=== PATIENT | male | born 1945 | race Caucasian/White ===

== ENCOUNTER → 2018-11-04 | Outpatient (CLI) | payer MEDICARE, BC, OTHER ==
--- NOTE | 2018-11-04 17:02 | REP ---
HISTORY: Adrenal gland hypertrophy. COMPARISON: None. The imaged upper abdomen obtained during chest CT 12/09/2015 was reviewed. The lung bases are clear. Limited evaluation of the solid intraabdominal organs and gallbladder show no gross abnormalities. Limited evaluation of the pancreas, adrenal glands and kidneys show no gross abnormalities. There is no free fluid or free air in the abdomen. Limited evaluation of the bowel loops and their mesenteries show no abnormalities. There is no evidence of a mass within the abdomen, retroperitoneum, or involving the organ of Zuck[place]andl. There is an infrarenal abdominal aortic aneurysm difficult to evaluate without contrast, but having an AP measurement of 3 cm with a mural thrombus. Bone window technique throughout the exam shows chronic spinal degenerative changes. IMPRESSION: 1. Abdominal aortic aneurysm as described above. Contrast enhanced examination is recommended for further evaluation along with clinical correlation. 2. No evidence of a mass, adrenal or otherwise with findings as described above. Electronically Signed by Asael Verduzco DO 11/04/2018 05:58 P
== END ==
LOC: M RAD 14:27
PROVIDERS: ATTEND Internal Medicine Cardiovascular Disease
DX: I71.4 Abdominal aortic aneurysm, without rupture (principal); E27.5 Adrenomedullary hyperfunction; I10 Essential (primary) hypertension; R23.2 Flushing

== ENCOUNTER → 2021-01-16 | Outpatient (CLI) | payer MEDICARE, BC, OTHER ==
[~2021-01-16] MED LIST: ASPI81CH33 PO; BICA50TA9 PO; DILT180C78 PO; LIPI20TA PO; LISI40TA4 PO; NOXI1TAB PO; THERTAB52 PO; XARE15TA PO
--- NOTE | 2021-01-17 08:33 | RADONC.CN ---
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 Diagnosis/Treatment History Oncologic History 10/16/20 elevated PSA to 7.1 referred to [facility], [facility]- 12/07/20 MRI Prostate with midline TZ lesion PIRADS 3, and Left anterior TZ PIRADS 3 12/12/20 TRUS biopsy Alex 4+3=7 Left base, mid 4/14 cores. 3+4=7 11/30 cores, 3+3=6 11/30 cores. 6/14 cores+ overall Was offered surgery but declined, self-referred to [facility] [place] due to proximity to home Gland 22 cc IPSS 3 ABHILASH 1 Interval History Here with his . He has longstanding ED, not interested in medication for this. He has minimal LUTs, gets up once at night. No issues with stream or emptying. He has regular bowel movements daily. He has a good appetite and energy level. Past Medical History: CVD ED HLD HTN Past Surgical History: Left knee replacemetn 2002 Right shoulder replacement 2006 Family History: Father bladder cancer Social History: Never smoker Drinks 1-2 alcoholic beverages 3 days per week Allergies / Meds Home Meds Active Scripts Bicalutamide (Bicalutamide) 50 Mg Tablet, 1 TAB PO DAILY for 30 Days, #30 TAB Prov:GUSTAVO NEWMAN MD 01/16/21 Reported Medications Vitamin D3/Folic Acid (Noxifol-D3 2,500 Unit-1 mg Tab) 2,500 Unit Tablet, 1 TAB PO DAILY for 30 Days, #30 TAB 01/16/21 Aspirin (Aspirin) 81 Mg Tab.chew, 1 TAB PO DAILY for pain for 30 Days, #30 TAB 01/16/21 Multivitamin,Therapeutic (Thera-Tabs) 1 Each Tablet, 1 TAB PO DAILY for 30 Days, #30 TAB 01/16/21 Rivaroxaban (Xarelto) 15 Mg Tablet, 1 TAB PO BID for 21 Days, #42 TAB 01/16/21 Diltiazem Hcl (Diltiazem 24Hr ER) 180 Mg Cap.er.24h, 180 MG PO DAILY for 30 Days, #30 CAP 01/16/21 Lisinopril (Lisinopril) 40 Mg Tablet, 1 TAB PO DAILY for 30 Days, #30 TAB 01/16/21 Atorvastatin Calcium (Lipitor) 20 Mg Tablet, 1 TAB PO DAILY for 30 Days, #30 TAB 01/16/21 Review of Systems Constitutional: Denies: Chills, Fever, Night Sweats Eyes: Denies: Pain, Vision change HEENT: Denies: Head Aches, Dysphagia, Sore Throat Skin: Denies: Rash, Lesions, Bruising Pulmonary: Denies: Dyspnea, Cough, Pleuritic Chest Pain, Other Symptoms Cardiovascular: Denies: Chest Pain, Palpitations, Edema Gastrointestinal: Denies: Nausea, Vomiting, Abdominal Pain, Diarrhea Genitourinary: Denies: Dysuria, Frequency, Incontinence Hematologic: Denies: Bruising, Petecchia, Enlarged Lymph Nodes Musculoskeletal: Denies: Neck pain, Back pain Neurological: Denies: Weakness, Numbness, Incoordination Psych: Reports: Mood Normal; Denies: Memory Issues, Thoughts of Self Harm Vital Signs Ht 68" Wt 174 lbs BMI 26 T 98 P 76 RR 18 BP 187/85 O2 99% Pain 0 Fatigue 0 General Exam: Positive: Alert, Cooperative, No Acute Distress Eye Exam: Positive: PERRLA, EOMI ENT EXAM: Positive: Mucous membr. moist/pink, Pharynx Normal Chest Exam: Positive: Normal air movement; Negative: Rales, Rhonchi, Wheezing Heart Exam: Positive: Rate Normal, Regular Rhythm Abdomen Exam: Positive: Soft; Negative: Tenderness, Mass Male Exam: Positive: Normal Genital Exam, Normal Prostate, Normal Sphincter Tone Extremity Exam: Negative: Edema, Tenderness Skin Exam: Positive: Nl turgor and temperature; Negative: Rash Neuro Exam: Positive: Normal Gait, Normal Speech, Cranial Nerves 3-12 NL Psych Exam: Positive: Mental status NL, Mood NL, Memory Intact Diagnostic and Laboratory Diagnostic Review Radiologic images, relevant labs and pathology reports were personally reviewed and discussed with Mr. Smith. Assessment and Plan Impression Mr. 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 Stage Unfavorable intermediate risk prostate cancer [id number] [place] 4+3=7 (6/14 cores+) PSA 7.1 stage IIC Performance Status ECOG 0 Plan We had an extensive discussion with Mr. Smith regarding the diagnosis at hand and available therapeutic options. He is a healthy man. Main urologic complaint is ED, longstanding, not interested in meds for this. He has low IPSS. Given his age and unfavorable intermediate risk prostate cancer, I think he is an excellent candidate for EBRT with 6 months of ADT. We discussed the various options for treatment including combination therapy with EBRT and brachytherapy boost, versus moderately hypofractionated RT 70 Gy in 28 fractions, versus SBRT 36.25 Gy in 5 fractions. I explained that although reports of SBRT efficacy seem equivalent to other schedules, there are no [id number] comparisons, and the follow up is around 10 years on the most extensive series. This is in contrast to moderate hypofractionation which is supported by [id number] comparisons with longer schedules and more extensive follow up. After discussing these pros and cons, he has selected moderate hypofractionation, which I think is a great choice. We also discussed SpaceOAR and fiducial marker placement, the former to reduce the risk of acute and late GI toxicity, and the latter to improve daily localization of treatment. He agreed to proceed with these medically necessary and warranted procedures. For ADT, I recommend a 6 month course of lupron, preceded by casodex 50 mg daily for ~2 weeks. We will arrange his first 3 month injection in the coming week. We discussed the logistics of receiving radiation therapy in detail including the need for a 1-time planning session. This would occur 1-2 weeks after his SpaceOAR and fiducial marker placement. We reviewed the side effects of treatment including irritative voiding symptoms, fatigue, diarrhea and late rectal bleeding. We reviewed the short term ADT side effects of hot flashes, diminished libido, weight gain, and joint pain. After discussing the risks, benefits and alternatives to radiation therapy, Mr. Smith was amenable to pursuing radiotherapy. All questions were answered to the patient's satisfaction. We instructed the patient that if there were any questions,concerns or changes in clinical status in the interim to contact us. Recommendations 70 Gy in 28 fractions with VMAT SpaceOAR and fiducial marker placement Simulation 1-2 weeks after placement Lupron 6 months, will arrange injection in next 1-2 weeks Casodex 50 mg daily for 30 days Billing Statement Total time of [50] minutes was spent preparing for the visit [3], obtaining HPI [4], examining the patient [3], reviewing diagnostic tests [5], discussing management options [20], coordinating care [4], and writing this note [11]. GUSTAVO NEWMAN MD Jan 17, 2021 08:33
== END ==
LOC: M ONCR 14:18
PROVIDERS: ATTEND General Practice
DX: C61 Malignant neoplasm of prostate (principal)

== ENCOUNTER → 2021-01-30 | Outpatient (CLI) | payer MEDICARE, BC, OTHER ==
[~2021-01-30] MED LIST changes: +LEUPROLIDE 45MG SYRINGE KIT (LUPRON DEPOT) (FOR ONCOLOGY) IM ONE
--- NOTE | 2021-01-30 15:00 | RADENCPD ---
Date/Time of Encounter Date of Encounter: Jan 30, 2021 Time of Encounter: 14:41 Encounter Lui came in today for a brief follow up prior to his first lupron injection. He has been tolerating casodex without issue. We reviewed the plan to proceed with lupron today a 45 mg injection which will last for 6 months. We reviewed the side effects of lupron including injection site pain, fatigue, low libido, ED, weight gain and hot flashes. Informed consent was obtained from the patient. We will proceed with SpaceOAR and fiducial marker placement on 02/09/21 I have instructed him to hold his xarelto and ASA for 72 hours prior to the procedure. Our nurse will call him early next week to confirm he has done so and provide additional instructions. Plan: Proceed with GUSTAVO Huber MD Jan 30, 2021 15:00
== END ==
LOC: M ONCR 13:52
PROVIDERS: ATTEND General Practice
DX: C61 Malignant neoplasm of prostate (principal)
CPT/HCPCS: 96401; G0463; J9217

== ENCOUNTER → 2021-02-08 | Outpatient (CLI) | payer MEDICARE, BC, OTHER ==
[~2021-02-08] MED LIST changes: +CIPR-249 PO; -LEUPROLIDE 45MG SYRINGE KIT (LUPRON DEPOT) (FOR ONCOLOGY) IM ONE; +LIDOCAINE 2% MDV 20ML VIAL XX ONE; +LIDOCAINE VISCOUS 2% SOLN 15ML UDC XX ONE; +LORA1TAB4 PO
--- NOTE | 2021-02-08 11:18 | ROOPDOC ---
[facility] Report Of Operation Report of Operation [facility] Radiation Oncology SpaceOAR & fiducial marker procedure note Name: Torrey Smith ShaistaB: 45 Procedure diagnosis: C61.0 Prostate cancer Procedure date/time: 02/08/2021 1000 Physician: Gustavo Newman MD Implant(s): Fiducials (2 seeds per needle): Qfix [id number] Lot# [id number] Exp 04/16/2024 Qty 2 SpaceOAR: [id number] Lot# [id number] Exp 09/29/22 Qty 1 Description of procedure: Informed consent for placement of SpaceOAR and fiducial marker seeds (4) was obtained pre-procedure. A timeout was completed. The patient was placed in the high lithotomy position and a rectal exam with 2% viscous lidocaine was completed. The rectal vault was empty of stool. A chlorhexidine prep of the perineal skin was completed. The trans-rectal ultrasound probe was introduced, the prostate and the rectal bulb were well visualized. 2% lidocaine was infiltrated in the skin and soft tissues of the perineum via a 23 Ga spinal needle under ultrasound guidance. 10cc of local was used. Patient tolerated the block well. Next, fiducial marker seeds were placed via pre-loaded 18 Ga needles under ultrasound guidance. 2 seeds were placed in the left anterior base and apex, respectively. 2 seeds were placed at the right posterior base and apex, respectively. A hydro-dissection of the space between the prostate and rectum was conducted by locating Denonvilliers fascia and injecting 10 cc of isotonic saline through an 18 Ga needle into the potential space there to develop a plane for SpaceOAR implant. Once the hydro-dissection was complete, the needle was withdrawn to mid-gland and 2 cc of 2% lidocaine were injected into the space. The implant needle was then checked in the sagittal and transverse planes for optimal position and once verified, the SpaceOAR implant was placed. The implant was noted to have excellent positioning from base to near-apex. The needle was withdrawn and the ultrasound probe was removed from the rectum. Post procedure vital signs were WNL. The patient tolerated the procedure well without significant discomfort. EBL: <1cc Disposition: Simulation for radiation therapy will occur in the next 1-2 weeks The patient will complete antibiotic prophylaxis this evening GUSTAVO NEWMAN MD Feb 08, 2021 11:18
== END ==
LOC: M ONCR 08:49
PROVIDERS: ATTEND General Practice
DX: C61 Malignant neoplasm of prostate (principal)
CPT/HCPCS: 55874; 55876; A4648; C1889

== ENCOUNTER → 2021-03-16 | Outpatient (RCR) | payer MEDICARE, BC, OTHER ==
[~2021-03-16] MED LIST changes: +FLOM0.4C39 PO; -LIDOCAINE 2% MDV 20ML VIAL XX ONE; -LIDOCAINE VISCOUS 2% SOLN 15ML UDC XX ONE
== END ==
LOC: M ONCR 02-21 14:00
PROVIDERS: ATTEND General Practice
DX: C61 Malignant neoplasm of prostate (principal)

== ENCOUNTER 2021-04-11 10:17 | Outpatient (RCR) | payer MEDICARE, BC, OTHER | END 2021-04-16 | LOC: M ONCR 10:17 | PROVIDERS: ATTEND General Practice | DX: C61 Malignant neoplasm of prostate (principal) ==

== ENCOUNTER → 2021-07-04 | Outpatient (CLI) | payer MEDICARE, BC, OTHER ==
--- NOTE | 2021-07-04 10:39 | RADONC ---
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 He underwent EBRT 70 Gy in 28 fractions completed 04/11/21. He had concurrent 6 month Lupron injection on 01/30/21 and SpaceOAR placement on 02/08/21. Diagnosis/Treatment History Oncologic History 10/16/20 elevated PSA to 7.1 referred to [facility], [facility]- 12/07/20 MRI Prostate with midline TZ lesion PIRADS 3, and Left anterior TZ PIRADS 3 12/12/20 TRUS biopsy [place] 4+3=7 Left base, mid 4/14 cores. 3+4=7 /14 cores, 3+3=6 / cores. 6/14 cores+ overall Was offered surgery but declined, self-referred to [facility] due to proximity to home 01/30/21 Lupron 45 mg 02/08/21 SpaceOAR/fiducial placement 03/05/21-04/11/21 70 Gy in 28 fractions Recent data: 06/25/21 PSA <0.1 Testosterone 11 Interval History Lui reports he is feeling relatively well appetite and weight are stable. He has no pain. He notes mild increase in nocturia to 3x (was 2-3x prior to RT). No urinary steam issues, no incomplete emptying or urgency. He has no BRBPR, or diarrhea. He does note some decreased energy and fat redistribution to the middle abdomen. Current Therapy Surveillance Stage Unfavorable intermediate risk prostate cancer cT1c [place] 4+3=7 (6/14 cores+) PSA 7.1 Social History: Never smoker Drinks 1-2 alcoholic beverages 3 days per week Allergies / Meds Allergies: Coded Allergies: lorazepam (Unverified Allergy, Unknown, 01/30/21) Home Meds Active Scripts Tamsulosin HCl (Flomax) 0.4 Mg Capsule, 1 CAP PO QPM for 30 Days, #30 CAP 3 Refills Prov:GUSTAVO NEWMAN MD 03/23/21 Ciprofloxacin HCl (Cipro) 500 Mg Tablet, 1 TAB PO BID for 1 Day, #2 TAB Take 1 tab in the morning before procedure. Take 1 tab in the evening after procedure Prov:GUSTAVO NEWMAN MD 02/05/21 Lorazepam (Lorazepam) 1 Mg Tablet, 1 TAB PO DAILY for anxiety MDD 1 Tablet(s), #1 TAB Take 1 tab 1 hour prior to your procedure Prov:GUSTAVO NEWMAN MD 02/05/21 Bicalutamide (Bicalutamide) 50 Mg Tablet, 1 TAB PO DAILY for 30 Days, #30 TAB Prov:GUSTAVO NEWMAN MD 01/16/21 Reported Medications Vitamin D3/Folic Acid (Noxifol-D3 2,500 Unit-1 mg Tab) 2,500 Unit Tablet, 1 TAB PO DAILY for 30 Days, #30 TAB 01/16/21 Aspirin (Aspirin) 81 Mg Tab.chew, 1 TAB PO DAILY for pain for 30 Days, #30 TAB 01/16/21 Multivitamin,Therapeutic (Thera-Tabs) 1 Each Tablet, 1 TAB PO DAILY for 30 Days, #30 TAB 01/16/21 Rivaroxaban (Xarelto) 15 Mg Tablet, 1 TAB PO BID for 21 Days, #42 TAB 01/16/21 Diltiazem Hcl (Diltiazem 24Hr ER) 180 Mg Cap.er.24h, 180 MG PO DAILY for 30 Days, #30 CAP 01/16/21 Lisinopril (Lisinopril) 40 Mg Tablet, 1 TAB PO DAILY for 30 Days, #30 TAB 01/16/21 Atorvastatin Calcium (Lipitor) 20 Mg Tablet, 1 TAB PO DAILY for 30 Days, #30 TAB 01/16/21 Review of Systems Review of Systems Constitutional: Denies: Chills, Fever, Fatigue, Weight Loss Eyes: Denies: Pain HEENT: Denies: Head Aches Pulmonary: Denies: Dyspnea, Cough Cardiovascular: Denies: Chest Pain Gastrointestinal: Denies: Abdominal Pain, Hematochezia Genitourinary: Denies: Dysuria, Frequency, Incontinence Hematologic: Denies: Bruising Endocrine: Denies: Cold Intolerance Musculoskeletal: Denies: Neck pain, Back pain Neurological: Denies: Weakness, Numbness Psych: Reports: Mood Normal Physical Examination Vital Signs Wt 178 lbs T 96.4 P 78 RR 18 BP 148/74 O2 98% Pain 0 Fatigue 0 General Exam: Alert, Cooperative, No Acute Distress Eye Exam: PERRLA, EOMI ENT EXAM: Atraumatic Neck Exam: Supple Chest Exam: Clear to auscultation Heart Exam: Rate Normal Abdomen Exam: Soft; Negative: Tenderness Extremity Exam: Negative: Edema Skin Exam: Nl turgor and temperature Neuro Exam: Normal Gait, Normal Speech, Cranial Nerves 3-12 NL Psych Exam: Mental status NL Diagnostic and Laboratory Diagnostic Review Radiologic images, relevant labs and pathology reports were personally reviewed and discussed with Mr. Smith. Assessment and Plan Impression Assessment Mr. 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 He underwent EBRT 70 Gy in 28 fractions completed 04/11/21. He had concurrent 6 month Lupron injection on 01/30/21 and SpaceOAR placement on 02/08/21. PSA remains appropriately suppressed. Discussed that in the coming months testosterone will normalize and that PSA may rise slightly with it. He does not need additional ADT. Doing well from a urinary standpoint, does not want medication at this time. Was previously intolerant of flomax. Will see again in 6 months to split follow up with urology. Performance Status ECOG 0 Plan 6 months with PSA/testosterone Mr. Smith was encouraged to call with questions or concerns in the interim period. Billing Statement Total time of [25] minutes was spent preparing for the visit [1], obtaining HPI [7], examining the patient [2], reviewing diagnostic tests [2], discussing management options [6], coordinating care [1], and writing this note [6]. GUSTAVO NEWMAN MD Jul 04, 2021 10:39
== END ==
LOC: M ONCR 09:21
PROVIDERS: ATTEND General Practice
DX: C61 Malignant neoplasm of prostate (principal); Z79.82 Long term (current) use of aspirin; Z79.899 Other long term (current) drug therapy

== ENCOUNTER → 2021-12-07 | Outpatient (CLI) | payer MEDICARE, BC, OTHER | LOC: M PLAIMG 09:10 | PROVIDERS: ATTEND Nurse Practitioner Adult Health | DX: M25.532 Pain in left wrist (principal); M19.032 Primary osteoarthritis, left wrist; M19.042 Primary osteoarthritis, left hand ==

== ENCOUNTER → 2022-01-03 | Outpatient (CLI) | payer MEDICARE, BC, OTHER | LOC: M ONCR 09:18 | PROVIDERS: ATTEND General Practice | DX: C61 Malignant neoplasm of prostate (principal); Z79.82 Long term (current) use of aspirin; Z79.899 Other long term (current) drug therapy; Z92.3 Personal history of irradiation ==

== ENCOUNTER → 2022-08-22 | Outpatient (CLI) | payer MEDICARE, BC, OTHER | LOC: M PLARAD 15:49 | PROVIDERS: ATTEND Family Medicine | DX: M46.1 Sacroiliitis, not elsewhere classified (principal); M51.16 Intervertebral disc disorders with radiculopathy, lumbar region; M47.816 Spondylosis without myelopathy or radiculopathy, lumbar region; M25.78 Osteophyte, vertebrae; M48.061 Spinal stenosis, lumbar region without neurogenic claudication ==

== ENCOUNTER → 2022-09-02 | Outpatient (CLI) | payer MEDICARE, BC, OTHER | LOC: M ONCR 10:22 | PROVIDERS: ATTEND General Practice | DX: C61 Malignant neoplasm of prostate (principal); Z79.01 Long term (current) use of anticoagulants; Z79.82 Long term (current) use of aspirin; Z79.899 Other long term (current) drug therapy; Z88.8 Allergy status to other drugs, medicaments and biological substances; Z92.21 Personal history of antineoplastic chemotherapy; Z92.3 Personal history of irradiation ==

== ENCOUNTER → 2022-09-02 | Outpatient (CLI) | payer MEDICARE, BC, OTHER | LOC: M PLAIMG 15:14 | PROVIDERS: ATTEND Family Medicine | DX: E87.1 Hypo-osmolality and hyponatremia (principal); I51.7 Cardiomegaly; I77.819 Aortic ectasia, unspecified site; Z96.611 Presence of right artificial shoulder joint ==

== ENCOUNTER → 2022-09-03 | Outpatient (REF) | payer MEDICARE, BC, OTHER | LOC: M LAB REF 16:56 | PROVIDERS: ATTEND Internal Medicine Nephrology | DX: E87.1 Hypo-osmolality and hyponatremia (principal); I50.32 Chronic diastolic (congestive) heart failure ==

== ENCOUNTER → 2023-08-29 | Outpatient (CLI) | payer MEDICARE, BC, OTHER ==
[~2023-08-29] MED LIST changes: +LORA1TAB23 PO; -LORA1TAB4 PO
== END ==
LOC: M ONCR 10:00
PROVIDERS: ATTEND General Practice
DX: C61 Malignant neoplasm of prostate (principal); R35.1 Nocturia; Z71.2 Person consulting for explanation of examination or test findings; Z79.01 Long term (current) use of anticoagulants; Z79.82 Long term (current) use of aspirin; Z79.899 Other long term (current) drug therapy; Z88.8 Allergy status to other drugs, medicaments and biological substances; Z92.3 Personal history of irradiation

== ENCOUNTER → 2024-01-21 | Outpatient (CLI) | payer MEDICARE, BC, OTHER ==
[2024-01-21 17:25] LABS: BASO % 0.1 % (0.0-1.0); HEMATOCRIT 40.2 % (42.0-52.0); HEMOGLOBIN 13.9 g/dl (13.5-17.5); LYMPH # 0.6 10^3/uL (1.5-5.0); LYMPH % 6.5 % (24.0-44.0); MEAN CORPUSCULAR HEMOGLOBIN 31.9 pg (27.0-33.0); MEAN CORPUSCULAR HGB CONC 34.6 g/dl (32.0-36.5); MEAN CORPUSCULAR VOLUME 92.2 fl (80.0-96.0); MONO # 0.2 10^3/uL (0.0-0.8); MONO % 1.6 % (2.0-8.0); NEUTROPHILS # 8.5 10^3/uL (1.5-8.5); NEUTROPHILS % 91.3 % (36.0-66.0); PLATELET COUNT, AUTOMATED 291 10^3/uL (150-450); RED BLOOD COUNT 4.36 10^6/uL (4.30-6.10); WHITE BLOOD COUNT 9.3 10^3/uL (4.0-10.0)
[2024-01-21 17:56] LABS: ALBUMIN 4.5 G/DL (3.2-5.2); ALKALINE PHOSPHATASE 83 U/L (46-116); ALT/SGPT 27 U/L (7.0-40); AST/SGOT 14 U/L (<34); BILIRUBIN,TOTAL 0.5 MG/DL (0.3-1.2); BLOOD UREA NITROGEN 13 MG/DL (9-23); CALCIUM LEVEL 8.9 MG/DL (8.3-10.6); CARBON DIOXIDE LEVEL 27 MMOL/L (20-31); CHLORIDE LEVEL 96 MMOL/L (98-107); FOLATE > 24.00 NG/ML (>5.4); FREE THYROXINE INDEX 2.9 % (1.4-3.8); GLOMERULAR FILTRATION RATE > 60.0 (>42); GLUCOSE, FASTING 148 MG/DL (74-106); POTASSIUM SERUM 4.9 MMOL/L (3.5-5.1); SODIUM LEVEL 127 MMOL/L (136-145); THYROID STIMULATING HORMONE 0.593 uIU/ML (0.55-4.78); THYROXINE (T4) 6.1 UG/DL (4.5-10.9); TOTAL PROTEIN 7.4 G/DL (5.7-8.2); VITAMIN B12 LEVEL 736 PG/ML (211-911)
== END ==
LOC: M PLALAB 14:40
PROVIDERS: ATTEND Psychiatry & Neurology Neurology
DX: R41.3 Other amnesia (principal); E07.9 Disorder of thyroid, unspecified; E53.8 Deficiency of other specified B group vitamins

== ENCOUNTER → 2024-08-31 | Outpatient (CLI) | payer MEDICARE, OTHER ==
[~2024-08-31] MED LIST changes: +BICA50TA4 PO; -BICA50TA9 PO
== END ==
LOC: M ONCR 10:19
PROVIDERS: ATTEND General Practice
DX: C61 Malignant neoplasm of prostate (principal); Z92.3 Personal history of irradiation; Z92.29 Personal history of other drug therapy; Z88.8 Allergy status to other drugs, medicaments and biological substances; Z79.82 Long term (current) use of aspirin; Z79.899 Other long term (current) drug therapy

== ENCOUNTER → 2024-12-20 | Outpatient (CLI) | payer MEDICARE, BC | LOC: M CARPUL 09:13 | PROVIDERS: ATTEND Internal Medicine Cardiovascular Disease | DX: I71.21 Aneurysm of the ascending aorta, without rupture (principal) ==